=== PATIENT | male | born 1985 | race Caucasian/White ===

== ENCOUNTER 2019-04-15 21:13 | Emergency (ER) | payer OTHER ==
[~2019-04-15] VITALS: Ht 175.3 cm; Wt 79.4 kg
--- NOTE | 2019-04-15 22:22 | NUR ---
MARCOS FROM HOME. TO ER BED 10. AAOX4. NO RESP DISTRESS NOTED, BREATHING EVEN AND UNLABORED. AMBULATORY. C/O CHEST PRESSURE, NUMBENESS ON BILAT ARMS AND LIGHTHEADEDNESS. PT REPORTS THAT THE CP STARTED @ 2:30PM BUT IN WENT AWAY AFTER 10MINS. AT THIS MOMENT PT STATES THAT PRESSURE IS STILL FELT NAD RATES IT 1/10. PT REPORT SLIGHT NUMBNESS ON BOTH OF HIS ARM. LIGHTHEADEDNESS IS GONE. PT PLACED ON MONITOR. EKG BEING DONE AT BEDSIDE. AWAITING MD FOR VEL
[2019-04-15] MEDS ORDERED: ASPIRIN 81 MG TAB.CHEW PO ONE (23:00)
[2019-04-15] MEDS ORDERED: ASPIRIN 81 MG TAB.CHEW ONE ×2 (23:04→23:05)
[2019-04-15 23:16] LABS: HEMOGLOBIN 16.2 g/dL (13.5-17.5)
[2019-04-15 23:22] LABS: BASOPHILS # (AUTO) 0.1 /CMM (0.0-0.2); BASOPHILS % (AUTO) 0.7 % (0.0-2.0); EOSINOPHILS % (AUTO) 3.5 % (0.0-6.0); HEMATOCRIT 48 % (39-51); LYMPHOCYTES # (AUTO) 1.1 /CMM (0.8-4.8); MEAN CORPUSCULAR HGB CONC 34 g/dl (31.0-36.0); MEAN CORPUSCULAR VOLUME 103 fL (80-96); MONOCYTES # (AUTO) 0.5 /CMM (0.1-1.30); MONOCYTES % (AUTO) 4.5 % (2.0-12.0); NEUTROPHILS # (AUTO) 8.9 /CMM (1.8-8.9); NEUTROPHILS % (AUTO) 81.3 % (43.0-81.0); PLATELET COUNT (AUTO) 310 /CMM (150-450); RED BLOOD CELL COUNT(AUTO) 4.64 MIL/uL (4.5-6.0)
[2019-04-15 23:25] LABS: CALCIUM, SERUM 8.9 mg/dL (8.5-10.1); CARBON DIOXIDE 27 mmol/L (21-32); CHLORIDE 102 mmol/L (98-107); CREATININE 1.2 mg/dL (0.6-1.3); GLUCOSE 97 mg/dL (74-106); POTASSIUM 3.7 mmol/L (3.5-5.1); SODIUM SERUM 137 mmol/L (136-145); UREA NITROGEN, BLOOD 14 mg/dL (7-18)
[2019-04-15 23:37] LABS: ALANINE AMINOTRANSFERASE 32 U/L (12-78); ALBUMIN 4.3 g/dL (3.4-5.0); ALKALINE PHOSPHATASE 58 U/L (46-116); ASPARTATE AMINOTRANSFERASE 23 U/L (15-37); BILIRUBIN,DIRECT 0.1 mg/dL (0.0-0.2); BILIRUBIN,TOTAL 0.5 mg/dL (0.2-1.0); TOTAL PROTEIN, SERUM 8.1 g/dL (6.4-8.2)
[2019-04-15 23:39] LABS: B-TYPE NATRIURETIC PEPTIDE 9 PG/ML (0-125)
--- NOTE | 2019-04-16 03:14 | NUR ---
Patient discharged to home in stable condition. Written and verbal after care instructions given. Patient verbalizes understanding of instruction.IV removed. Catheter intact and site benign. Pressure and 4x4 applied to site. No bleeding noted. Pt ambulatory with a steady gait
[2019-04-16 03:16] VITALS: BP 132/83
== END 2019-04-16 03:16 | disposition home or self-care (01) ==
LOC: ER 21:24
DX: R07.89 Other chest pain (principal); R06.00 Dyspnea, unspecified; R20.2 Paresthesia of skin; I10 Essential (primary) hypertension; Z98.890 Other specified postprocedural states; Z88.6 Allergy status to analgesic agent; Z91.013 Allergy to seafood
CPT/HCPCS: 36415; 71045-TC; 80048-TC; 80076-TC; 83880; 84484-TC; 85025-TC